=== PATIENT | male | born 1990 | race Caucasian/White ===

== ENCOUNTER 2018-05-04 02:13 | Emergency (ER) | payer SELFPAY ==
[~2018-05-04] VITALS: Ht 170.2 cm; Wt 68.0 kg
[2018-05-04] MEDS ORDERED: KETOROLAC 30MG/ML VIAL IV STA (03:40)
[2018-05-04] MEDS ORDERED: SODIUM CHLORIDE 0.9% 1,000 ML IV ONE (03:40)
[2018-05-04] MEDS ORDERED: ONDANSETRON HCL 4MG/2ML INJ IV STA (03:40)
[2018-05-04 04:39] LABS: CHLORIDE 105 mEq/L (98-107)
[2018-05-04 04:42] LABS: BASOPHILS % 0.4 % (0.0-2.0); EOSINOPHILS % 0.2 % (0.0-5.0); HEMOGLOBIN. 14.8 g/dL (14.0-18.0); LYMPHOCYTES % 11.8 % (20.0-50.0); MEAN CORPUSCULAR HEMOGLOBIN 33.1 pg (28.0-32.0); MEAN CORPUSCULAR VOLUME 98.1 fL (80.0-94.0); MEAN PLATELET VOLUME 9.1 fl (7.4-10.4); MONOCYTES % 10.3 % (2.0-8.0); NEUTROPHILS % 77.3 % (40.0-76.0); PLATELET 267 x1000/uL (130-400); RED BLOOD CELL COUNT 4.49 mill/uL (4.7-6.1); RED CELL DISTRIBUTION WIDTH 12.4 % (11.6-14.6)
[2018-05-04 06:53] VITALS: BP 114/74
== END 2018-05-04 06:55 | disposition home or self-care (01) ==
LOC: ER 02:13
DX: N13.2 Hydronephrosis with renal and ureteral calculous obstruction (principal); F17.210 Nicotine dependence, cigarettes, uncomplicated
CPT/HCPCS: 36415; 74176; 80053; 83690; 85025; 96374; 96375; 99285; J1885; J2405; J7030; Z7610

== ENCOUNTER 2021-03-17 07:40 | Emergency (ER) | payer SELFPAY ==
[~2021-03-17] VITALS: Ht 170.2 cm; Wt 72.0 kg
[2021-03-17] MEDS ORDERED: LIDOCAINE HCL/EPINEPHRINE 1%-EPI 1:100,000 20 ML VIAL INFIL ONE (09:45)
[2021-03-17] MEDS ORDERED: ACETAMINOPHEN 325MG TABLET PO ONE (09:45)
[2021-03-17] MEDS ORDERED: IBUPROFEN 600MG TABLET PO ONE (09:45)
[2021-03-17] MEDS ORDERED: BACITRACIN ZINC OINT UDPKT TOP ONE (09:45)
[2021-03-17] MEDS ORDERED: TETANUS, DIPHTHERIA, PERTUSSIS VAC/PF 0.5ML (>7YR OLD) IM ONE (09:45)
[2021-03-17] MEDS ORDERED: AMOX-424 MT (10:22)
[2021-03-17] MEDS ORDERED: AMOXICILLIN/POTASSIUM CLAVULANATE 875/125MG TAB PO ONE (10:30)
[2021-03-17 10:45] VITALS: BP 138/84
== END 2021-03-17 10:47 | disposition home or self-care (01) ==
LOC: ER 08:32
DX: S51.852A Open bite of left forearm, initial encounter (principal); W54.0XXA Bitten by dog, initial encounter; Y93.89 Activity, other specified; Y92.89 Other specified places as the place of occurrence of the external cause
CPT/HCPCS: 99284; A4217; J3490; Z7610; 90715